=== PATIENT | male | born 1995 | race Two or more races ===

== ENCOUNTER 2017-08-21 15:39 | Emergency (ER) | payer BC ==
--- NOTE | 2017-08-21 16:05 | EDM.PDOC ---
ED HPI GENERAL MEDICAL PROBLEM - General Chief Complaint: Upper Extremity Injury/Pain Stated Complaint: LEFT ARM PAIN Time Seen by Provider: 08/21/17 16:01 Source of Information: Reports: Patient History Limitations: Reports: No Limitations - History of Present Illness INITIAL COMMENTS - FREE TEXT/NARRATIVE: HISTORY AND PHYSICAL: History of present illness: Patient is a 21-year-old male who presents to the emergency room with complaints of left middle digit pain after swinging a bat and felt like he dislocated the finger. States he is able to grasp but has increased pain when trying to fully extend the finger out straight. Denies any numbness or tingling to the affected extremity. Skin is intact, warm, dry. Review of systems: As per history of present illness and below otherwise all systems reviewed and negative. Past medical history: As per history of present illness and as reviewed below otherwise noncontributory. Surgical history: As per history of present illness and as reviewed below otherwise noncontributory. Social history: No reported history of drug or alcohol abuse. Family history: As per history of present illness and as reviewed below otherwise noncontributory. Physical exam: General: All developed and well-nourished 21-year-old male. Alert and oriented. Nontoxic appearing and in no acute distress. HEENT: Atraumatic, normocephalic, pupils equal and reactive bilaterally, negative for conjunctival pallor or scleral icterus, mucous membranes moist, throat clear, neck supple, nontender, trachea midline. No drooling or trismus noted. No meningeal signs Lungs: Clear to auscultation, breath sounds equal bilaterally, chest nontender. Heart: S1S2, regular rate and rhythm without overt murmur Abdomen: Soft, nondistended, nontender. Negative for masses or hepatosplenomegaly. Negative for costovertebral tenderness. Pelvis: Stable nontender. Genitourinary: Deferred. Rectal: Deferred. Skin: Intact, warm, dry. No lesions or rashes noted. Extremities: Stepdown noted to left 3rd medial knuckle, able to bend the knuckle without difficulty but does have pain when extending the finger out straight. Strong radial pulse. Capillary refill less than 3 seconds of the affected finger + CMS. Neurovascular unremarkable. Neuro: Awake, alert, oriented. Cranial nerves II through XII unremarkable. Cerebellum unremarkable. Motor and sensory unremarkable throughout. Exam nonfocal. Notes: Xray shows no bone abnormalities, dislocations or fractures. Discussed with patient the limitations that x-rays have. We'll give him a cockup wrist splint. If he continues to have pain and discomfort I do want him to follow-up with the orthopedic provider as he may need further imaging to evaluate possible ligament and tendon. He voices understanding and is agreeable to plan of care. He denies any further questions at this time. Diagnostics: x-ray Therapeutics: Cockup wrist splint Impression: Finger injury Plan: 1. Rest, ice, elevate the affected extremity. Wear the brace for comfort. 2. Tylenol and/or ibuprofen as needed for pain management. 3. As we discussed please follow-up with the orthopedic provider as you may need further evaluation and management of your injury. Return to the ED as needed and as discussed. Definitive disposition and diagnosis as appropriate pending reevaluation and review of above. Onset: Today Duration: Minutes: Location: Reports: Upper Extremity, Left - Related Data Allergies Allergy/AdvReac Type Severity Reaction Status Date / Time No Known Allergies Allergy Verified 08/21/17 16:00 Home Meds: Home Meds . [No Known Home Meds] 08/21/17 [History] Review of Systems - Review of Systems Review Of Systems: ROS reveals no pertinent complaints other than HPI. ED EXAM, GENERAL - Physical Exam Exam: See Below (See dictation) Course - Vital Signs Last Recorded V/S: Last Vital Signs Temp 98.0 F 08/21/17 15:56 Pulse 87 08/21/17 15:56 Resp 16 08/21/17 15:56 BP 133/83 08/21/17 15:56 Pulse Ox 95 08/21/17 15:56 Departure - Departure Time of Disposition: 16:42 Disposition: Home, Self-Care 01 Clinical Impression: Finger injury Qualifiers: Encounter type: initial encounter Laterality: left Qualified Code(s): S69.92XA - Unspecified injury of left wrist, hand and finger(s), initial encounter - Discharge Information Referrals: PCP,None [Primary Care Provider] - Forms: ED Department Discharge Additional Instructions: The following information is given to patients seen in the emergency department who are being discharged to home. This information is to outline your options for follow-up care. We provide all patients seen in our emergency department with a follow-up referral. The need for follow-up, as well as the timing and circumstances, are variable depending upon the specifics of your emergency department visit. If you don't have a primary care physician on staff, we will provide you with a referral. We always advise you to contact your personal physician following an emergency department visit to inform them of the circumstance of the visit and for follow-up with them and/or the need for any referrals to a consulting specialist. The emergency department will also refer you to a specialist when appropriate. This referral assures that you have the opportunity for follow-up care with a specialist. All of these measure are taken in an effort to provide you with optimal care, which includes your follow-up. Under all circumstances we always encourage you to contact your private physician who remains a resource for coordinating your care. When calling for follow-up care, please make the office aware that this follow-up is from your recent emergency room visit. If for any reason you are refused follow-up, please contact the [facility] Emergency Department at and asked to speak to the emergency department charge nurse. [facility] [address] [place] [id number] 1. Rest, ice, elevate the affected extremity. Wear the brace for comfort. 2. Tylenol and/or ibuprofen as needed for pain management. 3. As we discussed please follow-up with the orthopedic provider as you may need further evaluation and management of your injury. Return to the ED as needed and as discussed.
--- NOTE | 2017-08-21 16:31 | CR ---
EXAMINATION: Left hand, third digit HISTORY: Injury COMPARISON: None TECHNIQUE: 3 views FINDINGS/IMPRESSION: There is a small cutaneous defect noted along the ventral surface of the distal third phalanx. The underlying osseous structures and joint spaces appear intact. Bone mineralization is normal.
== END 2017-08-21 17:02 | disposition home or self-care (01) ==
LOC: MW.ED 15:39
DX: S69.92XA Unspecified injury of left wrist, hand and finger(s), initial encounter (principal); X50.3XXA Overexertion from repetitive movements, initial encounter
CPT/HCPCS: 73140-26-F2; 73140-F2; 99283